=== PATIENT | female | born 1940 | race Two or more races ===

== ENCOUNTER 2020-03-09 06:05 | Day surgery (SDC) | payer OTHER | END 2020-03-09 09:55 | disposition home or self-care (01) | LOC: AMB-ENDOS 06:05 → CIR.AMB 10:15 | PROVIDERS: ATTEND Colon & Rectal Surgery | DX: K57.32 Diverticulitis of large intestine without perforation or abscess without bleeding (principal); K64.1 Second degree hemorrhoids; Z20.828 Contact with and (suspected) exposure to other viral communicable diseases ==